=== PATIENT | female | born 1935 | race Caucasian/White ===

== ENCOUNTER 2022-04-27 10:52 | Emergency (ER) | END 2022-04-27 13:13 | DX: S90.32XA Contusion of left foot, initial encounter (principal); S61.412A Laceration without foreign body of left hand, initial encounter; W18.39XA Other fall on same level, initial encounter; Y92.531 Health care provider office as the place of occurrence of the external cause; R29.6 Repeated falls; Z79.82 Long term (current) use of aspirin; F03.90 Unspecified dementia, unspecified severity, without behavioral disturbance, psychotic disturbance, mood disturbance, and anxiety; Z85.828 Personal history of other malignant neoplasm of skin | CPT/HCPCS: 99284; 73130; 73630; 90715; 90471; J7040 ==